=== PATIENT | male | born 1960 | race Caucasian/White ===

== ENCOUNTER 2020-06-11 15:01 | Emergency (ER) | payer MEDICAID, SELFPAY ==
[2020-06-11 15:02] VITALS: BP 130/92; PULSE 98; RESP 16; TEMP 36.4; O2SAT 98; BMI 24.3
--- NOTE | 2020-06-11 15:10 | W.ED.SEIZURE ---
HPI - Seizure General: Chief Complaint: Urogenital-Male Stated Complaint: BLOOD IN URINE Time Seen by Provider: 06/11/20 15:01 Source: patient and EMS Mode of arrival: EMS Limitations: no limitations History of Present Illness: HPI Narrative: 59-year-old male who states he has been having hematuria over a week. He states he was seen at [facility] 2 days ago and was prescribed Bactrim which he has not taken. He denies any pain denies any fever but states he still has had hematuria. Denies any worsening or improving factors. Associated symptoms: Deny chest pain, chills or fever(s) Review of Systems Const: Denies: fever(s), chills, body aches or change in appetite Eyes: Denies: blurry vision or eye discomfort ENMT: Denies: throat pain or dental pain Card: Denies: chest pain Resp: Denies: dyspnea GI: Denies: abdominal pain, nausea, vomiting or diarrhea : Reports: hematuria Musc: Denies: neck pain or back pain Skin/Breast: Denies: rash Neuro: Denies: headache(s) Psych: Denies: depression Kenan/Lymph: Denies: easy bruising All/Imm: Denies: urticaria Physical Exam Const: COMMON NORMALS: no acute distress, patient oriented x3 and healthy appearing HENMT: COMMON NORMALS: normocephalic and atraumatic HEAD & SCALP: normocephalic and atraumatic Eye: COMMON NORMALS: Equal, round and reactive pupils present and EOMs intact bilaterally PUPIL: Yes Equal, round and reactive pupils present Neck/C-Spine: COMMON NORMALS: full ROM and supple Chest: COMMONS NORMALS: normal inspection of the chest and normal palpation of entire chest wall Resp: COMMON NORMALS: normal respiratory effort, No retractions, No use of accessory muscles and clear to auscultation bilaterally AUSCULTATION: clear to auscultation bilaterally Cardio: COMMON NORMALS: regular rate, regular rhythm and No murmurs present (Cardio) RATE: regular rate RHYTHM: regular rhythm GI: COMMON NORMALS: Normal to inspection, nondistended, normoactive bowel sounds present, Soft to palpation, non-tender and no masses PALPATION: Yes Soft to palpation Extremity: COMMON NORMALS: normal to inspection and full ROM Neuro: COMMON NORMALS: patient oriented x3, moves all extremities and no focal motor deficits Psych: COMMON NORMALS: mental status grossly normal, Normal thought process present and cooperative THOUGHT PROCESS: Normal thought process present Skin: COMMON NORMALS: no rashes or lesions noted and no wounds GENERAL SKIN EXAM: no rashes or lesions noted Course Vital Signs: Vital signs: Vital Signs Temperature 97.6 F 06/11/20 15:02 Pulse Rate 98 06/11/20 15:02 Respiratory Rate 16 06/11/20 15:02 Blood Pressure 130/92 06/11/20 15:02 Pulse Oximetry 98 06/11/20 15:02 MDM - Seizure MDM Narrative: Medical decision making narrative: Patient presents here with hematuria. His blood work here is normal and CT scan at [facility] was able to receive the records showed bladder wall thickening with no other findings beside a slight neurogenic bladder. He is able to urinate here. He is to his take his antibiotics as prescribed and we will get him follow-up with urology. He is return if worsening. Lab Data: Labs: Lab Results 06/11/20 06/11/20 06/11/20 Range/Units 15:35 15:35 15:35 WBC 5.7 (4.0-10.0) 10^3/ uL RBC 4.66 (4.1-5.3) 10^6/u L Hgb 14.0 (11.7-16.6) g/dL Hct 44.1 (42.0-52.0) % MCV 94.6 H (80-94) fL MCH 30.0 (28.0-34.0) pg MCHC 31.7 (30.0-36.0) g/dL RDW 13.5 (12.1-15.1) % Plt Count 180 (130-400) 10^3/c mm MPV 10.6 H (7.4-10.4) fL Neut % (Auto) 53.0 % Lymph % (Auto) 26.1 % [place] % (Auto) 10.7 % Eos % (Auto) 8.2 % Baso % (Auto) 1.1 % Neut # (Auto) 3.02 (1.8-7.7) 10^3/u L Lymph # (Auto) 1.5 (0.8-4.8) 10^3/u L [place] # (Auto) 0.6 (0.2-0.9) 10^3/u L Eos # (Auto) 0.5 (0.0-0.8) 10^3/u L Baso # (Auto) 0.1 (0.0-0.1) 10^3/u L Nucleated RBC % (a uto) 0 % Nucleated RBCs # 0.0 /100WBC PT 13.30 (12.1-14.9) SECO NDS INR 0.98 (0.8-1.2) Sodium 141 (136-145) mmol/L Potassium 4.7 (3.5-5.1) mmol/L Chloride 107 (98-107) mmol/L Carbon Dioxide 26 (22-29) mmol/L Anion Gap 12.7 (5-19) BUN 19 (6-20) mg/dL Creatinine 1.5 H (0.7-1.2) mg/dL GFR Calculation 48.1 L (90-130) mL/min Glucose 108 (65-115) mg/dL Calculated Osmolal ity 295 (285-295) mOsm/k g Calcium 9.1 (8.5-10.5) mg/dL Total Bilirubin 0.3 (0.15-1.2) mg/dL AST 81 H (0-40) U/L ALT 64 H (0-41) U/L Alkaline Phosphata se 133 H (40-130) IU/L Total Protein 7.7 (6.6-8.7) g/dL Albumin 3.6 (3.5-5.2) g/dL Globulin 4.1 (1.3-4.6) g/dL Urine Color (Yellow) Urine Appearance (CLEAR) Urine pH (5-7) Ur Specific Gravit y (1.005-1.030) Urine Protein (Negative) Urine Glucose (UA) (Normal) Urine Ketones (Negative) Urine Blood (Negative) Urine Nitrate (Negative) Urine Bilirubin (Negative) Prot Sulfosalicyli c Acd (Negative) Urine Urobilinogen (Negative) mg/dL Ur Leukocyte Ruth ase (Negative) Urine RBC (0-2) /hpf Urine WBC (0-5) /hpf Ur Squamous Epith Cells (0-5) /hpf Amorphous Sediment Urine Bacteria (NONE) /hpf 11//20 Range/Units 15:46 WBC (4.0-10.0) 10^3/ uL RBC (4.1-5.3) 10^6/u L Hgb (11.7-16.6) g/dL Hct (42.0-52.0) % MCV (80-94) fL MCH (28.0-34.0) pg MCHC (30.0-36.0) g/dL RDW (12.1-15.1) % Plt Count (130-400) 10^3/c mm MPV (7.4-10.4) fL Neut % (Auto) % Lymph % (Auto) % [place] % (Auto) % Eos % (Auto) % Baso % (Auto) % Neut # (Auto) (1.8-7.7) 10^3/u L Lymph # (Auto) (0.8-4.8) 10^3/u L [place] # (Auto) (0.2-0.9) 10^3/u L Eos # (Auto) (0.0-0.8) 10^3/u L Baso # (Auto) (0.0-0.1) 10^3/u L Nucleated RBC % (a uto) % Nucleated RBCs # /100WBC PT (12.1-14.9) SECO NDS INR (0.8-1.2) Sodium (136-145) mmol/L Potassium (3.5-5.1) mmol/L Chloride (98-107) mmol/L Carbon Dioxide (22-29) mmol/L Anion Gap (5-19) BUN (6-20) mg/dL Creatinine (0.7-1.2) mg/dL GFR Calculation (90-130) mL/min Glucose (65-115) mg/dL Calculated Osmolal ity (285-295) mOsm/k g Calcium (8.5-10.5) mg/dL Total Bilirubin (0.15-1.2) mg/dL AST (0-40) U/L ALT (0-41) U/L Alkaline Phosphata se (40-130) IU/L Total Protein (6.6-8.7) g/dL Albumin (3.5-5.2) g/dL Globulin (1.3-4.6) g/dL Urine Color Red (Yellow) Urine Appearance Turbid (CLEAR) Urine pH 8 H (5-7) Ur Specific Gravit y 1.010 (1.005-1.030) Urine Protein 3+ H (Negative) Urine Glucose (UA) Norm (Normal) Urine Ketones Negative (Negative) Urine Blood 3+ H (Negative) Urine Nitrate Negative (Negative) Urine Bilirubin Neg (Negative) Prot Sulfosalicyli c Acd Positive (Negative) Urine Urobilinogen Norm (Negative) mg/dL Ur Leukocyte Ruth ase Trace H (Negative) Urine RBC Too numerous to c nt H (0-2) /hpf Urine WBC 5-10 H (0-5) /hpf Ur Squamous Epith Cells 0-4 H (0-5) /hpf Amorphous Sediment Not Reportable Urine Bacteria 2+ H (NONE) /hpf Discharge Plan Discharge Patient Disposition: Home Clinical Impression: Hematuria Qualifiers: Hematuria type: unspecified type Qualified Code(s): R31.9 - Hematuria, unspecified Condition: Stable Prescriptions: No Action gabapentin 300 mg capsule 300 mg PO QID RF: 0 diclofenac sodium 75 mg tablet,delayed release (DR/EC) 75 mg PO DAILY RF: 0 Discharge Orders: Discharge Order (Routine); Ordered 06/11/20 Ordered By: Monty Katz Referrals: Bharat Mooney MD [Physician] - 1-3 days Discharge Diet: Advance as tolerated Discharge Activity: Resume usual activity Patient Instructions: Acute Hematuria (ED) Coding Level of Care Code ED Editor In Chief [employer]aper for Chg Fwd Exam Comprehensive
[2020-06-11 15:41] LABS: Basophils # 0.1 10^3/uL (0.0-0.1); Basophils % 1.1 %; Eosinophils # 0.5 10^3/uL (0.0-0.8); Eosinophils % 8.2 %; Hematocrit 44.1 % (42.0-52.0); Lymphocytes # 1.5 10^3/uL (0.8-4.8); Lymphocytes % 26.1 %; Mean Corpuscular HGB Conc 31.7 g/dL (30.0-36.0); Mean Corpuscular Volume 94.6 fL (80-94); Mean Platelet Volume 10.6 fL (7.4-10.4); Monocytes # 0.6 10^3/uL (0.2-0.9); Monocytes % 10.7 %; Neutrophils # 3.02 10^3/uL (1.8-7.7); Nucleated Red Blood Cells % 0 %; Platelet Count 180 10^3/cmm (130-400); Red Blood Count 4.66 10^6/uL (4.1-5.3); Red Cell Distribution Width 13.5 % (12.1-15.1); White Blood Count 5.7 10^3/uL (4.0-10.0)
[2020-06-11 16:02] LABS: INR 0.98 (0.8-1.2)
[2020-06-11 16:07] LABS: Alanine Aminotransferase 64 U/L (0-41); Albumin Level 3.6 g/dL (3.5-5.2); Alkaline Phosphatase 133 IU/L (40-130); Aspartate Amino Transferase 81 U/L (0-40); Blood Urea Nitrogen 19 mg/dL (6-20); Calcium 9.1 mg/dL (8.5-10.5); Carbon Dioxide 26 mmol/L (22-29); Chloride 107 mmol/L (98-107); Globulin 4.1 g/dL (1.3-4.6); Glomerular Filtration Rate 48.1 mL/min (90-130); Glucose 108 mg/dL (65-115); Osmolality Calculated 295 mOsm/kg (285-295); Sodium 141 mmol/L (136-145); Total Bilirubin 0.3 mg/dL (0.15-1.2); Total Protein 7.7 g/dL (6.6-8.7)
[2020-06-11 16:11] LABS: Anion Gap 12.7 (5-19); Potassium 4.7 mmol/L (3.5-5.1)
[2020-06-11 16:12] LABS: Glucose Urine UA Norm (Normal); Ketones Urine Negative (Negative); Protein Urine 3+ (Negative); Urine Appearance Turbid (CLEAR); Urine Color Red (Yellow); pH Urine 8 (5-7)
[2020-06-11 16:13] LABS: Add Urine Microscopic? YES; Bacteria Urine 2+ /hpf; Bilirubin Urine Neg (Negative); Blood Urine 3+ (Negative); Leukocyte Esterase Urine Trace (Negative); Nitrate Urine Negative (Negative); RBC Urine TOO NUMEROUS TO CNT /hpf (0-2); Squamous Epithelial Cell Urine 0-4 /hpf (0-5); Sulfosalicylic Acid Urine Positive (Negative); Urobilinogen Urine Norm (Negative)
[2020-06-11 16:14] LABS: Add Urine Culture? Yes
[2020-06-11 17:03] VITALS: BP 140/79; PULSE 85; RESP 16; O2SAT 97
--- NOTE | 2020-06-12 10:38 | DCPLANNER ---
route sales manager had message to schedule a follow up appointment for patient with Dr. Mooney. route sales manager called the office of Dr. Mooney, spoke with Karen, gave clinic patients information. route sales manager was told that patients information would be printed and reviewed. Clinic will call patient with appointment information.
--- NOTE | 2020-06-20 11:11 | DCPLANNER ---
Patient had a follow up appointment scheduled for 06.18.[address] Mooney - patient did not attend appointment.
== END 2020-06-11 17:04 | disposition home or self-care (01) ==
PROVIDERS: Emergency Provider Emergency Medicine
DX: R31.9 Hematuria, unspecified (principal)
CPT/HCPCS: 12345; 80053; 81001; 85025; 85610; 87086; 99283

== ENCOUNTER 2020-12-02 12:22 | Emergency (ER) | payer MEDICAID, SELFPAY ==
[2020-12-02 12:28] VITALS: BP 144/97; PULSE 97; RESP 18; TEMP 36.8; O2SAT 97; BMI 21.9
[2020-12-02 12:37] VITALS: PULSE 79; RESP 18; O2SAT 100
--- NOTE | 2020-12-02 12:45 | W.ED.EXTPRO ---
HPI - Extremity Problem General: Chief complaint: Extremity Problem,Nontraumatic Stated complaint: RIGHT HIP PAIN NON TRAUMATIC Time Seen by Provider: 12/02/20 12:25 History of Present Illness: HPI Narrative: Patient arrives via ambulance complaint of sciatic pain down right hip down right leg. Been going on for couple days. Says hurts to ambulate. Denies any other health problems besides chronic fibromyalgia which she is asking for us to write a marijuana card. Complaint: extremity pain Onset (ago): day(s) Pain Consistency: constant Location: right Severity scale (1-10): 4 Quality: sharp Radiation: distal Relieving factors: immobilization Exacerbating factors: range of motion and weight bearing Associated symptoms: Reports no associated symptoms; Deny chest pain, fever(s) or rash Review of Systems Const: Denies: fever(s), chills or body aches Eyes: Denies: change in vision or blurry vision ENMT: Denies: throat pain or nasal congestion Card: Denies: chest pain or dyspnea on exertion Resp: Denies: dyspnea, productive cough or non-productive cough GI: Denies: abdominal pain, nausea or vomiting : Denies: difficulty urinating Musc: Reports: extremity pain (Pain radiates down the right buttock down leg to toe.) and limited range of motion Skin/Breast: Denies: rash Neuro: Denies: headache(s) Psych: Denies: anxiety or depression Kenan/Lymph: Denies: easy bruising Physical Exam Const: COMMON NORMALS: average body habitus and patient oriented x3 GENERAL APPEARANCE: disheveled HENMT: COMMON NORMALS: normocephalic HEAD & SCALP: normal to inspection and normocephalic FACE & SINUS: normal facial exam Eye: COMMON NORMALS: conjunctivae normal GENERAL EYE: appearance normal, both eyes and all related structures CONJUNCTIVA: Yes conjunctivae normal Neck/C-Spine: COMMON NORMALS: no JVD Chest: COMMONS NORMALS: normal inspection of the chest Resp: COMMON NORMALS: normal respiratory effort and clear to auscultation bilaterally AUSCULTATION: clear to auscultation bilaterally Cardio: COMMON NORMALS: no JVD, regular rate and regular rhythm RATE: regular rate RHYTHM: regular rhythm OTHER: Both extremities warm good pulses GI: COMMON NORMALS: Normal to inspection, nondistended, normoactive bowel sounds present Back/Pelvis: LUMBAR SPINE/LOWER BACK: Yes straight leg raise positive right (Tenderness along sciatic root down to about knee tenderness buttocks) Straight leg raise positive details right: at 30 degrees OTHER: Unable to assess left due to fibromyalgia and chronic 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 Hurt his back most likely couple days ago he has a pain that radiates down the buttock down the leg. Hurts with palpation also range of motion. Patient wants is given marijuana card to help with his pain said he has. Discharge Plan Discharge Patient Disposition: Home Clinical Impression: Sciatica of right side Condition: Stable Prescriptions: New prednisone 20 mg tablet 20 mg PO DAILY Qty: 7 RF: 0 Celebrex 100 mg capsule 100 mg PO BID Qty: 20 RF: 0 Discontinued diclofenac sodium 75 mg tablet,delayed release (DR/EC) 75 mg PO DAILY RF: 0 No Action gabapentin 300 mg capsule 300 mg PO QID RF: 0 Discharge Orders: Discharge ED (Routine); Ordered 12/02/20 Ordered By: Richar Ritchie Discharge Diet: Usual diet Discharge Activity: Increase activity as tolerated Patient Instructions: Sciatica (ED) Activity Restrictions/Additional Instructions: Establish primary care provider. Follow-up with medical provider as directed. Take medications as prescribed. Return to the ER or your medical provider if condition worsens. Please read and understand discharge instructions. If any questions ask please. Apply ice to the lower back. No heavy lifting over 10 pounds for next 3 to 4 weeks. Coding Level of Care Code ED Communications Director for Minda Fwjasmin Exam Comprehensive
[2020-12-02 13:03] VITALS: PULSE 93
[2020-12-02] MEDS: HYDROcodone-acetaminophen 7.5-325 mg Tablet 1 TAB PO (13:31)
[2020-12-02] MEDS: ketorolac 60 mg/2 mL INJ IM (13:32)
[2020-12-02] MEDS: methylPREDNISolone (DEPO) 40 mg/mL INJ 1 mL IM (13:33)
[2020-12-02 13:54] VITALS: BP 141/96; PULSE 93; RESP 18; TEMP 36.8; O2SAT 98
== END 2020-12-02 13:57 | disposition home or self-care (01) ==
PROVIDERS: Emergency Provider Nurse Practitioner Family
DX: M54.31 Sciatica, right side (principal)
CPT/HCPCS: 96372; 99283; J1030; J1885

== ENCOUNTER 2023-01-19 10:58 | Emergency (ER) | payer MEDICAID, SELFPAY ==
--- NOTE | 2023-01-19 11:03 | XRR_ITS ---
PROCEDURE INFORMATION: Exam: XR Left Humerus Exam date and time: 01/19/2023 11:13 AM Age: 62 years old Clinical indication: Injury or trauma; Fall; Bleeding/hemorrhage; Arm, upper; Left TECHNIQUE: Imaging protocol: Radiologic exam of the left humerus. Views: 2 or more views. COMPARISON: CR XR shoulder LT min 2V* [id number] 01/19/2023 11:12 AM FINDINGS: Bones/joints: There is a mildly displaced fracture of the lateral left clavicle. There is slight cortical irregularity about the outer aspect of the distal humeral diametaphysis. No dislocation. Soft tissues: Normal. XR/[place] [id number] IMPRESSION: 1. Mildly displaced fracture of the lateral left clavicle. 2. Slight cortical irregularity about the outer aspect of the distal humeral diametaphysis. Correlation for point tenderness is recommended.
--- NOTE | 2023-01-19 11:03 | XRR_ITS ---
PROCEDURE INFORMATION: Exam: XR Left Shoulder Exam date and time: 01/19/2023 11:12 AM Age: 62 years old Clinical indication: Injury or trauma; Fall; Blunt trauma (contusions or hematomas); Shoulder; Left TECHNIQUE: Imaging protocol: Radiologic exam of the left shoulder. Views: 2 or more views. COMPARISON: [place] [id number] 01/19/2023 11:10 AM FINDINGS: Bones/joints: There is a mildly displaced fracture of the lateral left clavicle. No dislocation. Cervicothoracic spine fusion hardware noted. Soft tissues: Normal. XR/XR shoulder LT min 2V* [id number] IMPRESSION: Mildly displaced fracture of the lateral left clavicle.
--- NOTE | 2023-01-19 11:03 | XRR_ITS ---
PROCEDURE INFORMATION: Exam: XR Left Clavicle, Complete Exam date and time: 01/19/2023 11:10 AM Age: 62 years old Clinical indication: Injury or trauma; Fall; Blunt trauma (contusions or hematomas); Shoulder; Left TECHNIQUE: Imaging protocol: Radiologic exam of the left clavicle. Complete exam. Views: Any number of views. COMPARISON: CR XR chest 1V [id number] 01/04/2019 12:06 AM FINDINGS: Bones/joints: There is a mildly displaced oblique fracture of the lateral left clavicle. No dislocation. Cervicothoracic spine fusion hardware noted. Soft tissues: Normal. XR/[place] [id number] IMPRESSION: Mildly displaced fracture of the lateral left clavicle.
[2023-01-19 11:13] VITALS: BP 115/76; PULSE 82; RESP 15; O2SAT 96; BMI 21.9
[2023-01-19] MEDS: HYDROcodone-acetaminophen 5-325 mg Tablet 1 TAB PO (11:26)
--- NOTE | 2023-01-19 11:44 | PC.PHAR ---
pt states he takes care of his own medications -rx filled 12/20/22 30d/s 300mg qam 600mg at noon and 300mg hs pt states he is out and takes 3 caps po qam 300mg at noon and 600mg hs
--- NOTE | 2023-01-19 11:51 | ED_ITS ---
HPI - Fall General: Chief Complaint: Fall Stated Complaint: fall 2 days ago, left collarbone and arm pain Time Seen by Provider: 01/19/23 11:02 History of Present Illness: 62-year-old male presents emergency room with complaints of left shoulder pain. He fell out of his electric wheelchair 2 days ago. He has some bruising over his clavicle no shortness of breath did not strike his head no loss of consciousness. MD complaint: fall Fall from: wheelchair Place fall occurred: home Loss of consciousness: None Prolonged down time: no Context: tripped/slipped Location of injury - extremities: Left: shoulder Severity: moderate Associated symptoms-after fall: Denies abdominal pain, chest pain, confusion, difficulty walking, headache(s), hematuria, lightheadedness, neck pain, numbness, short of breath, vertigo or weakness Review of Systems Const: Denies: fever(s), chills, body aches, change in appetite, fatigue or malaise Card: Denies: chest pain or lightheadedness Resp: Denies: dyspnea or wheezing GI: Denies: abdominal pain, nausea or vomiting : Denies: flank pain, dysuria, urinary frequency, urinary urgency or hematuria Musc: Denies: neck pain or back pain Skin/Breast: Denies: rash or pruritus Neuro: Denies: headache(s), difficulty walking, vertigo or confusion Physical Exam Const: GENERAL APPEARANCE: cooperative and comfortable ORIENTATION/CONSCIOUSNESS: Yes awake, Yes oriented to person, Yes oriented to place and Yes oriented to time HENMT: COMMON NORMALS: normocephalic, atraumatic and hearing grossly normal bilaterally HEAD & SCALP: normocephalic and atraumatic Chest: OTHER: Deformity of the left clavicle with overlying bruising. Crepitus on palpation Resp: COMMON NORMALS: normal respiratory effort, No retractions, No use of accessory muscles and clear to auscultation bilaterally AUSCULTATION: clear to auscultation bilaterally Cardio: COMMON NORMALS: regular rate, regular rhythm and No murmurs present (Cardio) RATE: regular rate RHYTHM: regular rhythm GI: COMMON NORMALS: Soft to palpation and No hepatosplenomegaly present AUSCULTATION: Yes normoactive bowel sounds PALPATION: Yes Soft to palpation, No Tenderness to palpation present (GI), No Guarding due to palpation present (GI) and Yes No hepatosplenomegaly present Extremity: COMMON NORMALS: normal to inspection, capillary refill normal, no clubbing, cyanosis or edema, no calf tenderness and no pedal edema Neuro: SENSORIUM/ORIENTATION: Yes oriented to person, Yes oriented to place and Yes oriented to time Skin: COMMON NORMALS: no rashes or lesions noted GENERAL SKIN EXAM: no olena hes or lesions noted Course Vital Signs: Vital signs: Vital Signs Pulse Rate 82 01/19/23 11:13 Respiratory Rate 15 01/19/23 11:13 Blood Pressure 115/76 01/19/23 11:13 Pulse Oximetry 96 01/19/23 11:13 Oxygen Delivery Me thod Room Air 01/19/23 11:13 MDM - Fall Medical Decision Making Clavicle fracture. There is a question of proximal humerus pain cortical defect but he has no pain at that level. Place patient in sling follow-up with Ortho they can repeat films of the humerus if felt appropriate. Pain medications given Medical Records I reviewed the patient's medical records. Lab Data I reviewed the patient's lab results. Radiology Impressions Clavicle X-Ray 01/19/23 11:03 IMPRESSION: Mildly displaced fracture of the lateral left clavicle. Humerus X-Ray 01/19/23 11:03 IMPRESSION: 1. Mildly displaced fracture of the lateral left clavicle. 2. Slight cortical irregularity about the outer aspect of the distal humeral diametaphysis. Correlation for point tenderness is recommended. Shoulder X-Ray 01/19/23 11:03 IMPRESSION: Mildly displaced fracture of the lateral left clavicle. Discharge Plan Discharge Patient Disposition: Home Clinical Impression: Fracture, clavicle closed, shaft Condition: Stable Prescriptions: New hydrocodone-acetaminophen 5-325 mg tablet 1 tab PO Q6H PRN (Reason: pain) Qty: 10 0RF No Action gabapentin 300 mg capsule See Rx Instructions .ROUTE .COMPLEX Rx Instructions: 900mg (3 caps) po qam, 300mg (1 cap) po at noon and 600mg (2 caps) po bedtime Discharge Orders: Discharge ED (Routine); Ordered 01/19/23 Ordered By: Eliazar Fischer Discharge Diet: Usual diet Discharge Activity: Increase activity as tolerated Patient Instructions: Opioid Safety, Pain Management Activity Restrictions/Additional Instructions: You were seen today for a left collarbone fracture. Case management make arrangements for you to follow-up with orthopedics. Recommend keeping your left arm in the sling until released by orthopedics Coding Level of Care Code ED Pocketed Spring Assembler for Minda Ibarra
--- NOTE | 2023-01-19 13:32 | PC.SOCIAL ---
Addendum entered by Brigitte Wang 01/29/23 12:44: real estate firm manager received the following message from the ortho clinic regarding follow up appointment: tried to call patient again - number just rings and rings w/ no vm option - will mail a letter to call our clinic to schedule per below On Thu 12:23p Jan 21, 2023 Tanisha Matson (Covering For: [employer] [employer]) Wrote To: Agatha Jeong attempt made to contact patient - number has no vm, just states wireless customer not available. will try again later. Will be scheduled w/ HOLLIE badillo Original Note: Ortho F/u Referral to ortho at this time. Clinic to contact patient with appt date/time.
== END 2023-01-19 12:13 | disposition home or self-care (01) ==
PROVIDERS: Emergency Provider Family Medicine
DX: S42.022A Displaced fracture of shaft of left clavicle, initial encounter for closed fracture (principal); W05.1XXA Fall from non-moving nonmotorized scooter, initial encounter; Y92.009 Unspecified place in unspecified non-institutional (private) residence as the place of occurrence of the external cause
CPT/HCPCS: 73000; 73030; 73060; 99283

== ENCOUNTER 2024-08-20 08:09 | Observation (INO) | payer SELFPAY ==
[2024-08-20] VITALS (27 sets, daily range): BP systolic 81–151; BP diastolic 47–101; PULSE 72–113; RESP 18–20; TEMP 37.1; O2SAT 89–100; BMI 21.9
[2024-08-20 09:36] LABS: Basophils % 0.3 %; Hematocrit 40.1 % (37-53); Lymphocytes # 0.5 10^3/uL (0.8-4.8); Lymphocytes % 17.4 %; Mean Corpuscular HGB Conc 32.2 g/dL (30-55); Mean Corpuscular Hemoglobin 29.5 pg (27-33); Mean Corpuscular Volume 91.8 fl (82-101); Mean Platelet Volume 9.9 fL (7.4-10.4); Monocytes # 0.5 10^3/uL (0.2-0.9); Monocytes % 17.8 %; Neutrophils # 1.85 10^3/uL (1.8-7.7); Neutrophils % 64.5 %; Nucleated Red Blood Cells % 0 %; Platelet Count 98 10^3/cmm (157-399); Red Blood Count 4.37 10^6/uL (3.85-5.65); Red Cell Distribution Width 14.7 % (12.1-15.1); White Blood Count 2.87 10^3/uL (3.29-11.43)
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
[2024-08-20 09:55] LABS: Alanine Aminotransferase 49 U/L (0-41); Albumin Level 3.3 g/dL (3.5-5.2); Alkaline Phosphatase 129 U/L (40-130); Anion Gap 12.1 (5-19); Aspartate Amino Transferase 111 U/L (0-40); Blood Urea Nitrogen 22 mg/dL (8-23); Calcium 8.3 mg/dL (8.5-10.5); Carbon Dioxide 25 mmol/L (22-29); Chloride 106 mmol/L (98-107); Creatinine Clr Calc Pharmacy 63.2539; Glomerular Filtration Rate 67.6 mL/min (90-130); Glucose 96 mg/dL (65-115); Osmolality Calculated 291 mOsm/kg (285-295); Potassium 4.1 mmol/L (3.5-5.1); Sodium 139 mmol/L (136-145); Total Bilirubin 0.7 mg/dL (0.15-1.2); Total Protein 7.3 g/dL (6.6-8.7)
[2024-08-20 10:00] LABS: Bilirubin Urine Negative (Negative); Blood Urine Negative (Negative); Glucose Urine UA Negative (Normal); Ketones Urine Negative (Negative); Leukocyte Esterase Urine 1+ (Negative); Nitrate Urine Negative (Negative); Protein Urine 2+ (Negative); Urine Appearance Clear (CLEAR); Urine Color Yellow (Yellow); pH Urine 5.5 (5-7)
[2024-08-20 10:02] LABS: Add Urine Microscopic? YES; Bacteria Urine 3+ /hpf; Hyaline Casts Urine 0.81 /lpf; RBC Urine 0-2 /hpf (0-2); Squamous Epithelial Cell Urine 0-5 /hpf (0-5); WBC Urine 21-50 /hpf (0-5)
[2024-08-20 10:04] LABS: Add Urine Culture? Yes
[2024-08-20 10:36] LABS: Influenza A POSITIVE (Negative); Influenza B NEGATIVE (Negative); Respiratory Syncytial Virus Ce NEGATIVE (Negative); SARS-CoV-2 PCR NEGATIVE (Negative)
[2024-08-20] MEDS: sodium chloride 0.9% 1,000 ML 999 ML IV (10:54)
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
--- NOTE | 2024-08-20 11:49 | PC.PHAR ---
spoke to [facility] pharmacy and they stated they had a Gabapentin called in on 06/25/24 but then it sttaed it was closed out on 07/05/24 but doesn't state why according to [facility]'s . Patient illed at [facility], [facility],but they have closed down. [facility] also has a Baclofen prescription that has not been picked up but is ready .
[2024-08-20] MEDS: HYDROmorphone 1 mg/mL INJ 1 mL 0.4 MG IVP ×2 (12:30→16:01)
[2024-08-20] MEDS: cefTRIAXone 2,000 mg SDV 2000 MG IVP (12:30)
--- NOTE | 2024-08-20 14:36 | PC.NURSE ---
PATIENT WILL NOT TOLERATE KEEPING PULSE OX ON AT THIS TIME. EDUCATED PATIENT AND HE VERBALIZED DISINTEREST IN PURPOSE FOR PULSE OX. WILL CONTINUE TO ATTEMPT TO KEEP PATIENT ON PULSE OX.
--- NOTE | 2024-08-20 16:06 | PC.NURSE ---
DOCUMENTED PATIENTS O2 DURING ADMINISTRATION OF DILAUDID. PATIENT REFUSES TO KEEP PULSE OX ON.
--- NOTE | 2024-08-20 16:57 | PC.NURSE ---
patient refuses to wear pulse ox. patient has equal nonlabored respirations at this time. BP cuff still on patient and monitoring BP.
--- NOTE | 2024-08-20 17:47 | PC.NURSE ---
PATIENT PLACED ON O2 PROBE AND PATIENT PULLED OFF O2 PROBE. PATIENT WILL NOT LAY STILL AND IS ROLLING BACK AND FOURTH AND STATES HE DOES NOT KNOW WHY.
--- NOTE | 2024-08-20 20:22 | PC.NURSE ---
Patient yelling and telling this nurse help me but is unable to tell this nurse what is wrong. When asked if patient is in pain, patient states everywhere . Hospitalist notified.
--- NOTE | 2024-08-20 20:57 | PC.NURSE ---
Patient sleeping in bed at this time.
[2024-08-20] MEDS: oxyCODONE-APAP 5-325 mg Tablet 1 TAB PO (21:27)
--- NOTE | 2024-08-20 23:01 | PC.NURSE ---
Patient sleeping in bed at this time.
--- NOTE | 2024-08-20 23:48 | PC.NURSE ---
Dr. Verde called after this nurse placed patient on 2L for an oxygen saturation of 88% on room air and because of patient's hypotension.
[2024-08-20] MEDS: lactated ringers 1,000 ML 999 ML IV (23:57)
[2024-08-21] VITALS (34 sets, daily range): BP systolic 83–127; BP diastolic 45–87; PULSE 74–88; RESP 16–19; TEMP 36.5–37.3; O2SAT 89–97; BMI 23.1
--- NOTE | 2024-08-21 00:55 | XRR_ITS ---
PROCEDURE INFORMATION: Exam: XR Chest Exam date and time: 08/21/2024 12:59 AM Age: 64 years old Clinical indication: Shortness of breath; Prior surgery; Surgery date: 6+ months; Surgery type: Cervical fusion; C/O SOB. Flu a positive. TECHNIQUE: Imaging protocol: Radiologic exam of the chest. Views: 1 view. COMPARISON: CR XR chest 1V [id number] 01/04/2019 12:06 AM FINDINGS: Lungs: Mild reticular perihilar opacities could relate to mild pulmonary edema or atypical infection. Pleural spaces: Unremarkable. No pleural effusion. No pneumothorax. Heart/Mediastinum: Unremarkable. No cardiomegaly. Bones/joints: Partially visualized cervicothoracic spinal hardware, with chronically fractured component on the left. XR/XR chest 1V portable [id number] IMPRESSION: Mild reticular perihilar opacities could relate to mild pulmonary edema or atypical infection.
[2024-08-21] MEDS: sennosides 8.6 mg Tablet 17.2 MG PO ×2 (01:03→20:31)
[2024-08-21] MEDS: oseltamivir phosphate 75 mg Capsule PO ×3 (01:03→17:03)
[2024-08-21 02:16] LABS: Lactic Sepsis W/Reflex 0.9 mmol/L (0.5-2.2)
--- NOTE | 2024-08-21 02:33 | PC.NURSE ---
Patient sleeping in bed at this time.
[2024-08-21] MEDS: sodium chloride 0.9% 1,000 ML 999 ML IV (03:50)
[2024-08-21] MEDS: LORazepam 2 mg/mL INJ 1 mL IVP (04:38)
[2024-08-21 05:32] LABS: Basophils % 0.8 %; Eosinophils % 0.8 %; Hematocrit 35.5 % (37-53); Lymphocytes # 0.6 10^3/uL (0.8-4.8); Lymphocytes % 25.2 %; Mean Corpuscular Hemoglobin 29.7 pg (27-33); Mean Corpuscular Volume 95.9 fl (82-101); Mean Platelet Volume 10.6 fL (7.4-10.4); Monocytes # 0.4 10^3/uL (0.2-0.9); Monocytes % 17.6 %; Neutrophils # 1.38 10^3/uL (1.8-7.7); Neutrophils % 55.2 %; Nucleated Red Blood Cells % 0.8 %; Platelet Count 79 10^3/cmm (157-399); Red Cell Distribution Width 14.7 % (12.1-15.1)
--- NOTE | 2024-08-21 06:05 | PC.NURSE ---
Attempted to call report to med surg nurse x2.
[2024-08-21 06:08] LABS: Alanine Aminotransferase 36 U/L (0-41); Albumin Level 2.6 g/dL (3.5-5.2); Alkaline Phosphatase 116 U/L (40-130); Anion Gap 13.7 (5-19); Aspartate Amino Transferase 87 U/L (0-40); Blood Urea Nitrogen 21 mg/dL (8-23); Calcium 7.4 mg/dL (8.5-10.5); Carbon Dioxide 21 mmol/L (22-29); Chloride 108 mmol/L (98-107); Creatinine Clr Calc Pharmacy 77.3104; Globulin 3.2 g/dL (1.3-4.6); Glomerular Filtration Rate 85.2 mL/min (90-130); Glucose 92 mg/dL (65-115); Magnesium 1.8 mg/dL (1.7-2.3); Osmolality Calculated 291 mOsm/kg (285-295); Potassium 3.7 mmol/L (3.5-5.1); Sodium 139 mmol/L (136-145); Total Bilirubin 0.3 mg/dL (0.15-1.2); Total Protein 5.8 g/dL (6.6-8.7)
[2024-08-21] MEDS: folic acid 1 mg Tablet PO (08:16)
[2024-08-21] MEDS: multivitamin therapeutic Tablet 1 TAB PO (08:16)
[2024-08-21] MEDS: thiamine 100 mg Tablet PO (08:16)
[2024-08-21] MEDS: benzonatate 100 mg Capsule 200 MG PO (08:16)
[2024-08-21] MEDS: HYDROcodone-acetaminophen 5-325 mg Tablet 1 TAB PO ×2 (08:21→17:03)
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
[2024-08-21] MEDS: gabapentin 300 mg Capsule PO (12:17)
[2024-08-21] MEDS: cefTRIAXone 1,000 mg SDV 1000 MG IVP (12:17)
[2024-08-21] MEDS: gabapentin 300 mg Capsule 600 MG PO (20:31)
[2024-08-22] VITALS (10 sets, daily range): BP systolic 100–121; BP diastolic 56–77; PULSE 64–90; RESP 16–19; TEMP 36.6–37.1; O2SAT 94–99
[2024-08-22] MEDS: gabapentin 300 mg Capsule 900 MG PO (06:06)
[2024-08-22] MEDS: oseltamivir phosphate 75 mg Capsule PO ×2 (08:12→18:57)
[2024-08-22] MEDS: folic acid 1 mg Tablet PO (08:12)
[2024-08-22] MEDS: multivitamin therapeutic Tablet 1 TAB PO (08:12)
[2024-08-22] MEDS: thiamine 100 mg Tablet PO (08:12)
[2024-08-22] MEDS: gabapentin 300 mg Capsule PO (13:20)
[2024-08-22] MEDS: cefTRIAXone 1,000 mg SDV 1000 MG IVP (13:20)
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
[2024-08-22] MEDS: amoxicillin-clav 875-125 mg Tablet 1 TAB PO (18:57)
[2024-08-22] MEDS: sennosides 8.6 mg Tablet 17.2 MG PO (20:33)
[2024-08-22] MEDS: gabapentin 300 mg Capsule 600 MG PO (20:33)
[2024-08-23] VITALS: BP 113/74; PULSE 82; RESP 18; TEMP 37.1; O2SAT 95
[2024-08-23 04:00] VITALS: BP 109/71; PULSE 81; RESP 18; TEMP 36.8; O2SAT 93
[2024-08-23 08:00] VITALS: BP 111/69; PULSE 77; RESP 15; TEMP 36.5; O2SAT 94
[2024-08-23 08:03] VITALS: PULSE 80; RESP 16; O2SAT 94
[2024-08-23] MEDS: multivitamin therapeutic Tablet 1 TAB PO (09:20)
[2024-08-23] MEDS: amoxicillin-clav 875-125 mg Tablet 1 TAB PO ×2 (09:20→17:58)
[2024-08-23] MEDS: thiamine 100 mg Tablet PO (09:21)
[2024-08-23] MEDS: oseltamivir phosphate 75 mg Capsule PO ×2 (09:21→17:58)
[2024-08-23] MEDS: folic acid 1 mg Tablet PO (09:21)
[2024-08-23 10:46] VITALS: BP 115/75; PULSE 76; RESP 16; TEMP 36.6; O2SAT 95
[2024-08-23] MEDS: gabapentin 300 mg Capsule PO (13:37)
--- NOTE | 2024-08-23 13:49 | PC.NURSE ---
Patient is to discharge. Waiting for Liability Claims Representative to talk with Medicaid personal to get number for a ride and find a wheel chair for patient.
[2024-08-23 15:19] VITALS: BP 115/75; PULSE 88; RESP 16; TEMP 36.6; O2SAT 95
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
--- NOTE | 2024-08-23 17:14 | PC.NURSE ---
discussed discharge medications with patient. Patient had medications delivered to bedside by pharmacy. Patient had a medicaid ride set up to discharge but since the ride has failed. Patient is to leave at 0800 08/24/2024 per Case management.
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
== END 2024-08-23 19:45 | disposition home or self-care (01) ==
LOC: ER 11:21 → ER IP 14:20 → MEDSURG 08-21 00:39
PROVIDERS: Internal Medicine; Admitting Provider Internal Medicine; Emergency Provider Emergency Medicine; Visit Provider Student in an Organized Health Care Education/Training Program
DX: N39.0 Urinary tract infection, site not specified (principal); J10.1 Influenza due to other identified influenza virus with other respiratory manifestations; Z59.00 Homelessness unspecified; D69.6 Thrombocytopenia, unspecified; G82.20 Paraplegia, unspecified; M54.9 Dorsalgia, unspecified; G89.29 Other chronic pain; F17.210 Nicotine dependence, cigarettes, uncomplicated; Z79.899 Other long term (current) drug therapy; F43.21 Adjustment disorder with depressed mood; B95.2 Enterococcus as the cause of diseases classified elsewhere; F10.10 Alcohol abuse, uncomplicated; Z99.3 Dependence on wheelchair; R53.1 Weakness; R53.81 Other malaise; Z11.52 Encounter for screening for COVID-19
CPT/HCPCS: 36415; 71045; 80053; 81001; 83605; 83735; 84100; 85025; 87077; 87086; 87186; 87637; 96374; 96375; 96376; 97161; 97165; 99285; G0378; J0696; J1171; J2060; J7030; J7120